=== PATIENT | male | born 1955 | race Caucasian/White ===

== ENCOUNTER 2021-08-23 08:23 | Outpatient (CLI) | payer MEDICARE, BC | END 2021-08-23 08:24 | disposition home or self-care (01) | LOC: CSHULT 08:23 | PROVIDERS: ATTEND Otolaryngology Otolaryngic Allergy | DX: H93.A9 Pulsatile tinnitus, unspecified ear (principal); R51.9 Headache, unspecified; R09.89 Other specified symptoms and signs involving the circulatory and respiratory systems; R90.89 Other abnormal findings on diagnostic imaging of central nervous system; H93.8X3 Other specified disorders of ear, bilateral; I65.23 Occlusion and stenosis of bilateral carotid arteries | CPT/HCPCS: 70544; 70553; 82565; 93880 ==